=== PATIENT | female | born 1995 | race Caucasian/White ===

== ENCOUNTER 2018-05-14 01:36 | Emergency (ER) | payer MEDICAID ==
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
[2018-05-14 03:35] VITALS: BP 132/73
== END 2018-05-14 03:33 | disposition home or self-care (01) ==
DX: S09.90XA Unspecified injury of head, initial encounter (principal); S80.211A Abrasion, right knee, initial encounter; S16.1XXA Strain of muscle, fascia and tendon at neck level, initial encounter; S83.91XA Sprain of unspecified site of right knee, initial encounter; Y04.8XXA Assault by other bodily force, initial encounter; Y92.59 Other trade areas as the place of occurrence of the external cause